=== PATIENT | female | born 1955 | race Caucasian/White ===

== ENCOUNTER 2018-07-23 11:44 | Inpatient (IN) | payer MEDICAID, OTHER ==
[2018-07-23 12:40] LABS: VENOUS BLOOD GAS BASE EXCESS 1.7 mmol/L (0.0-2.0); VENOUS BLOOD GAS PO2 16 mm/Hg (30-55); VENOUS BLOOD PH 7.39 (7.32-7.43)
--- NOTE | 2018-07-23 12:46 | ED PDOC ---
Arrival/HPI - General Chief Complaint: Cough, Cold, Congestion Time Seen by Provider: 07/23/18 12:03 Historian: Patient - History of Present Illness Narrative History of Present Illness (Text): 07/23/18 12:03 Amanda Clinton is a 63 year old female, with a past medical history of double bypass CABG and pulmonary embolism who presents to the emergency department complaining of sudden flu-like symptoms since 5 days. Patient states flying to [place] 6 days ago with no symptoms. Patient notes intermittent chest pain and body aches. Patient also informs of nausea and decreased appetite. Patient took motrin for pain. Patient also states taking zithromax z-pack and tylenol. Patient informs taking tamiflu prescribed by daughter for 2 days and appreciated side effects. Patient notes developing a cough, shortness of breath, and inte rmittent dizziness. Patient states she was seen at an urgent care this morning for chest X-ray which shows bilateral pneumonia. Patient is unsure of sick contact. Patient informs taking coumadin for 6 months but has since discontinued use. Patient informs taking metropolol bid. Also takes baby aspirin. Patient denies abdominal pain, vomiting, diarrhea, bloody stool, dysuria, hematuria, or any other complaints. Time/Duration: < week (5 days) Symptom Onset: Sudden Activities at Onset: Light Context: Work Past Medical History - Provider Review Nursing Documentation Reviewed: Yes - Infectious Disease Hx of Infectious Diseases: None - Reproductive Menopause: Yes - Cardiac Hx Cardiac Disorders: Yes Other/Comment: bypass - Pulmonary Hx Respiratory Disorders: No Hx Pulmonary Embolism: Yes - Endocrine/Metabolic Hx Endocrine Disorders: No - Hematological/Oncological Hx Blood Disorders: No - Musculoskeletal/Rheumatological Hx Musculoskeletal Disorders: No - Genitourinary/Gynecological Hx Genitourinary Disorders: No - Psychiatric Hx Substance Use: No - Anesthesia Hx Anesthesia: No Family/Social History - Physician Review Nursing Documentation Reviewed: Yes Family/Social History: Unknown Family HX Smoking Status: Unknown If Ever Smoked Hx Alcohol Use: Yes Frequency of alcohol use: Socially Hx Substance Use: No Allergies/Home Meds Allergies/Adverse Reactions: Allergies No Known Allergies Allergy (Verified 07/23/18 12:02) Home Medications: Home Meds Medication Instructions Recorded Confirmed Aspirin [Ecotrin] 81 mg PO DAILY 07/23/18 07/23/18 Atorvastatin [Lipitor] 20 mg PO DAILY 07/23/18 07/23/18 Metoprolol Tartrate [Lopressor] 75 mg PO BID 07/23/18 07/23/18 Ranitidine HCl [Zantac 75] 150 mg PO DAILY 07/23/18 07/23/18 Review of Systems - Physician Review All systems were reviewed & negative as marked: Yes - Review of Systems Constitutional: Fevers, Other (body aches) Respiratory: SOB, Cough Cardiovascular: Chest Pain Gastrointestinal: Nausea, Appetite Changes (decreased appetite). absent: Abdominal Pain, Diarrhea, Vomiting, Hematochezia Genitourinary Female: absent: Dysuria, Hematuria Neurological: Dizziness Physical Exam Vital Signs Reviewed: Yes Vital Signs Temp Pulse Resp BP Pulse Ox 07/23/18 11:55 98.6 F 98 H 20 106/66 96 Temperature: Afebrile Blood Pressure: Normal Pulse: Regular Respiratory Rate: Normal Appearance: Positive for: Well-Appearing, Non-Toxic, Comfortable Pain Distress: None Mental Status: Positive for: Alert and Oriented X 3 - Systems Exam Head: Present: Atraumatic, Normocephalic Pupils: Present: PERRL Extroacular Muscles: Present: EOMI Conjunctiva: Present: Normal Mouth: Present: Moist Mucous Membranes Neck: Present: Normal Range of Motion Respiratory/Chest: Present: Clear to Auscultation, Good Air Exchange. No: Respiratory Distress, Accessory Muscle Use, Wheezes, Rales, Rhonchi Cardiovascular: Present: Regular Rate and Rhythm, Normal S1, S2. No: Murmurs, Rub, Gallop Abdomen: Present: Normal Bowel Sounds. No: Tenderness, Distention, Peritoneal Signs, Rebound, Guarding Back: Present: Normal Inspection Upper Extremity: Present: Normal Inspection, NORMAL PULSES. No: Cyanosis, Edema Lower Extremity: Present: Normal Inspection, NORMAL PULSES. No: Edema Neurological: Present: GCS=15, CN II-XII Intact, Speech Normal, Motor Func Grossly Intact Skin: Present: Warm, Dry, Normal Color. No: Rashes Psychiatric: Present: Alert, Oriented x 3, Normal Insight, Normal Concentration Medical Decision Making ED Course and Treatment: 07/23/18 12:03 Impression: Patient is a 63 year old female, with a past medical history of double bypass CABG and pulmonary embolism, who presents to the emergency department complaining of flu-like symptoms since 5 days. Plan: -- VBG -- CT Angio Chest -- Labs -- Influenza A/B -- Levaquin -- Reassess and disposition Prior Visits: Notes and results from previous visits were reviewed. Progress Notes: 07/23/18 13:44 Reviewed EKG, shows: NSR at 86 BPM. Normal Intervals. No ST elevations. 07/23/18 14:23 CT Angio Chest shows: IMPRESSION: There is dense consolidation of the right upper lobe. Air bronchograms are seen . There is no evidence of endobronchial obstruction. Findings are consistent with a lobar pneumonia. There is no evidence of pulmonary embolus 07/23/18 14:[address] Mcpherson; accepts patient to his service and agrees with ordering Levaquin. 07/23/18 15:52 Patient's niece (Dr. Hernandez, lockstitch front edge tape sewer) phoned. She states the family requests consult per Dr. Dumont. Dr. Dumont requests patient admission to Dr. Amezquita's service 07/23/18 16:00 Dr. Mcpherson aware of change in attending. 07/23/18 16:10 Case d/w Dr. Amezquita who accepts pt to her service. - Lab Interpretations Lab Results: pO2 16 mm/Hg (30-55) L 07/23/18 12:30 VBG pH 7.39 (7.32-7.43) 07/23/18 12:30 VBG pCO2 45.0 (40-60) 07/23/18 12:30 VBG HCO3 27.2 mmol/l (21-28) 07/23/18 12:30 VBG Total CO2 28.6 mmol.L (22-28) H 07/23/18 12:30 VBG O2 Sat (Calc) 34.6 % (40-65) L 07/23/18 12:30 VBG Base Excess 1.7 mmol/L (0.0-2.0) 07/23/18 12:30 VBG Potassium 3.9 mmol/L (3.6-5.2) 07/23/18 12:30 Sodium 133.0 mmol/L (132-148) 07/23/18 12:30 Chloride 101.0 mmol/L (98-107) 07/23/18 12:30 Glucose 120 mg/dl (65-105) H 07/23/18 12:30 Lactate 1.9 mmol/L (0.7-2.1) 07/23/18 12:30 FiO2 21.0 % 07/23/18 12:30 Blood Gas Comments Released 07/23/18 12:30 Crit Value Called To Rn 07/23/18 12:30 Crit Value Called By E 07/23/18 12:30 Blood Gas Notified Time 1240 07/23/18 12:30 - RAD Interpretation Radiology Orders: 07/23/18 12:19 ANGIO CHEST PE PROTOCOL [CT] Stat - EKG Interpretation Interpreted by ED Physician: Yes Type: 12 lead EKG - Scribe Statement The provider has reviewed the documentation as recorded by the Scribe Mulugeta Hernandez All medical record entries made by the Scribe were at my direction and personally dictated by me. I have reviewed the chart and agree that the record accurately reflects my personal performance of the history, physical exam, medical decision making, and the department course for this patient. I have also personally directed, reviewed, and agree with the discharge instructions and disposition. Disposition/Present on Arrival - Present on Arrival Any Indicators Present on Arrival: No History of DVT/PE: No History of Uncontrolled Diabetes: No Urinary Catheter: No History of Decub. Ulcer: No History Surgical Site Infection Following: None - Disposition Have Diagnosis and Disposition been Completed?: Yes Diagnosis: Pneumonia, Failure of outpatient treatment Disposition: HOSPITALIZED Disposition Time: 14:45 Patient Plan: Admission Condition: STABLE
[2018-07-23 12:57] LABS: BASO # 0.01 K/mm3 (0.0-2.0); BASO % 0.1 % (0.0-3.0); EOS % 0.4 % (1.5-5.0); LYMPH # 1.1 (1.2-3.4); LYMPH % 11.3 % (22.0-35.0); MEAN CELL VOLUME 87.4 fl (80.0-105.0); MEAN CORPUSCULAR HEMOGLOBIN 29.7 pg (25.0-35.0); MONO # 0.6 (0.1-0.6); RBC 4.04 10^6/uL (3.5-6.1); RED CELL DISTRIBUTION WIDTH 13.8 % (11.5-14.5); WHITE BLOOD COUNT 9.7 10^3/uL (4.5-11.0)
[2018-07-23 13:06] LABS: INR 1.19; PARTIAL THROMBOPLASTIN TIME 31.7 Seconds (26.9-38.3); PROTHROMBIN TIME 13.5 SECONDS (9.4-12.5)
[2018-07-23 13:09] LABS: ALBUMIN 3.2 g/dL (3.0-4.8); ALT/SGPT 22 U/L (7-56); AST/SGOT 31 U/L (14-36); BLOOD UREA NITROGEN 20 mg/dL (7-21); CALCIUM 9.4 mg/dL (8.4-10.5); GFR NON-AFRICAN AMERICAN 56
[2018-07-23 13:21] LABS: B-TYPE NATRIURETIC PEPTIDE 2510 pg/mL (0-450); TROPONIN I < 0.01 ng/mL
[2018-07-23] MEDS ORDERED: Iohexol 350 MG/100 ML VIAL ONE (13:43)
--- NOTE | 2018-07-23 14:27 | CT ---
Date of service: 07/23/2018 PROCEDURE: CT Chest with contrast (Pulmonary Angiogram) HISTORY: sob/cp COMPARISON: None available. TECHNIQUE: Axial computed tomography images were obtained of the chest in the pulmonary arterial phase of enhancement. Coronal and sagittal reformatted images were created and reviewed. Intravenous contrast dose: 100 cc of Omni 350 Radiation dose: Total exam DLP = 214.13 mGy-cm. This CT exam was performed using one or more of the following dose reduction techniques: Automated exposure control, adjustment of the mA and/or kV according to patient size, and/or use of iterative reconstruction technique. FINDINGS: PULMONARY ARTERIES: Unremarkable. No pulmonary embolism. AORTA: No acute findings. No thoracic aortic aneurysm. No aortic atherosclerotic calcification or mural plaque present. LUNGS: There is dense consolidation of the right upper lobe. Air bronchograms are seen. There is no evidence of endobronchial obstruction. Findings are consistent with a lobar pneumonia. PLEURAL SPACES: Unremarkable. No effusion or pneumothorax. HEART: Unremarkable. No cardiomegaly. No significant pericardial effusion. LYMPH NODES: No lymphadenopathy. BONES, CHEST WALL: Unremarkable. No fracture or destructive lesion OTHER FINDINGS: Unremarkable. IMPRESSION: There is dense consolidation of the right upper lobe. Air bronchograms are seen. There is no evidence of endobronchial obstruction. Findings are consistent with a lobar pneumonia. There is no evidence of pulmonary embolus
[2018-07-23] MEDS ORDERED: levoFLOXacin 750 mg in D5W 150 ML BAG IVPB STA (14:54)
[2018-07-23] MEDS ORDERED: levoFLOXacin 750 mg in D5W 750 MG/150 ML BAG IVPB STA (14:59)
[2018-07-23] MEDS ORDERED: Pneumococcal 23-Valent Vaccine IM ONE (18:19)
--- NOTE | 2018-07-23 21:49 | CARD ---
APPROVED REPORT Date of service: 07/23/2018 EKG Measurement Heart [id number] <Conclusion> Poor data quality, interpretation may be adversely affected Normal sinus rhythm Minor NDSTT abnormalities [facility] ECG
--- NOTE | 2018-07-24 02:53 | HP ---
DATE OF EXAM: 07/23/2018 CHIEF COMPLAINT: Cold, cough and congestion. HISTORY OF PRESENT ILLNESS: Ms. Amanda Clinton is a 63-year-old female with past medical history of double bypass CABG and pulmonary embolism who came to the emergency department complaining of sudden flu-like symptoms since 5 days. The patient states flying to [place] 6 days ago with no symptoms. The patient had noticed intermittent chest pain, body aches. The patient also is complaining of nauseous and decreased appetite. She takes Motrin for pain and the patient also states that the patient went to urgent care center, they gave her Z-Pito and Tylenol, took Tamiflu two days ago. Has cough, shortness of breath, intermittent dizziness. Chest x-ray was done in urgent care, shows bilateral pneumonia. The patient does not remember of sick contact. The patient is on Coumadin from 6 months and has discontinued taking blood pressure medication. No fever. No chills. PAST MEDICAL HISTORY: As above. History of bypass, pulmonary embolism. FAMILY HISTORY: Father and mother, noncontributory. HABITS: Denies smoke. No drugs. No ethanol. ALLERGIES: THE PATIENT IS NOT ALLERGIC WITH ANY MEDICATIONS. HOME MEDICATIONS: Ecotrin, Lipitor, Lopressor, and Zantac. REVIEW OF SYSTEMS: The patient was seen and examined at the bedside, looking comfortable. No fever. No chills. Son was standing on the bedside also, he gave me also history. No dysuria. No hematuria. No hematochezia. PHYSICAL EXAMINATION VITAL SIGNS: Temperature 98.6, pulse 98, respiratory rate 20, blood pressure 106/66, pulse oximetry 96%. HEENT: Head; normocephalic and atraumatic. Eyes; PERRLA. Extraocular muscles intact. Conjunctiva clear. Nose patent. NECK: Supple. No carotid bruits, JVD, or thyromegaly. CHEST: Bilaterally symmetrical. HEART: S1 and S2 positive. LUNGS: Clear to auscultation. ABDOMEN: Soft. Bowel sounds positive. No organomegaly. EXTREMITIES: No edema. No cyanosis. NEUROLOGICAL: The patient is awake, alert. Moving all four extremities. No focal deficits. LABORATORY DATA: White blood cells 6.7, hemoglobin 12, hematocrit 35.3, platelets 254. Sodium 137, potassium 4, BUN 20, creatinine 1, glucose 117, alkaline phosphate 140, BNP 2510. ASSESSMENT AND PLAN: Ms. Amanda Clinton is a 63-year-old lady with hyperglycemia, rule out congestive heart failure, Influenza type A and B is negative. History of upper respiratory tract infection, cold. Got Z-Pito from urgent care, has partially treated. New dense consolidation of the right upper lobe, air bronchogram are seen. There is no evidence of endobronchial obstruction, findings are consistent with lobar pneumonia. The patient has a history of double bypass coronary artery bypass graft, pulmonary embolism was on Coumadin. Discussion done with the patient and the patient's son, an emergency room physician met with Dr. Dumont, [facility], who will be on the case. Infectious Disease consult written for Dr. Garza. Dr. Dumont ordered Legionella antigen urine, mycoplasma pneumoniae, Streptococcus pneumoniae, gave antibiotics. Gastrointestinal and deep venous thrombosis prophylaxis. Repeat labs. We will follow up. Eve Amezquita MD
[2018-07-24 06:46] LABS: HEMOGLOBIN 11.4 g/dL (12.0-16.0); MEAN CELL VOLUME 86.1 fl (80.0-105.0); MEAN CORPUSCULAR HEMOGLOBIN 28.9 pg (25.0-35.0); MEAN CORPUSCULAR HGB CONC 33.5 g/dl (31.0-37.0); MEAN PLATELET VOLUME 9.6 fl (7.0-11.0); RBC 3.95 10^6/uL (3.5-6.1); RED CELL DISTRIBUTION WIDTH 13.8 % (11.5-14.5); WHITE BLOOD COUNT 8.1 10^3/uL (4.5-11.0)
[2018-07-24 07:12] LABS: LDL CHOLESTEROL 51 mg/dL (0-129)
[2018-07-24 07:15] LABS: BLOOD UREA NITROGEN 12 mg/dL (7-21); CALCIUM 8.9 mg/dL (8.4-10.5); GFR NON-AFRICAN AMERICAN > 60; HDL CHOLESTEROL 13 mg/dL (29-60)
[2018-07-24 07:49] LABS: IRON 21 ug/dL (45-180)
[2018-07-24 07:58] LABS: % IRON SATURATION 10 % (20-55); TOTAL IRON BINDING CAPACITY 206 ug/dL (265-497)
[2018-07-24] MEDS ORDERED: cefTRIAXone 1 gm 1 GM/100 ML BAG IVPB SCH (10:00)
--- NOTE | 2018-07-24 16:21 | CON ---
DATE: 07/24/2018 PULMONARY CONSULTATION NOTE REFERRING PHYSICIAN: Eve Amezquita MD REASON FOR CONSULT: Shortness of breath, cough and congestion. HISTORY OF PRESENT ILLNESS: This is a 63-year-old female with past medical history significant for double bypass, CABG and pulmonary embolism who came to the emergency room complaining of sudden flu-like symptoms for 5 days. The patient reports that she was on a work trip to [place] 6 days ago where she had no symptoms, then she noticed she was having intermittent chest pain and body aches, nausea and decreased appetite. She reports taking Motrin for pain and also reports that she went to the urgent care center where she got Z-Pito and Tylenol. The patient also reports taking Tamiflu, noticed that her symptoms were not getting any better. Had a chest x-ray done in urgent care which showed bilateral pneumonia. Denies any sick contacts. The patient reports being on Coumadin for 6 months which has now been discontinued. PAST MEDICAL HISTORY: As per history of present illness. FAMILY HISTORY: No significant cardiopulmonary disease reported. SOCIAL HISTORY: Nonsmoker. No EtOH abuse. No illicit drug use. ALLERGIES: NO KNOWN ALLERGIES. MEDICATIONS: Reviewed. Aspirin 81 mg daily, Lipitor 20 mg at dinner, Zithromax 500 mg daily, Rocephin 1 g daily, Pepcid 40 mg at bedtime and metoprolol tartrate 75 mg twice a day. REVIEW OF SYSTEMS: No headache, rhinitis, cough, shortness of breath, chest pain, abdominal pain, nausea, vomiting, diarrhea, leg pain and leg swelling reported at this time. PHYSICAL EXAMINATION GENERAL: No acute distress. VITAL SIGNS: Blood pressure 114/69, pulse 79, temperature 99, and oxygen saturation 97%. HEENT: Moist mucous membranes. Mallampati score of 4. NECK: Supple. No JVD. RESPIRATORY: Decreased breath sounds on the right. CARDIOVASCULAR: S1 and S2. ABDOMEN: Soft and nontender. No distention. No organomegaly. EXTREMITIES: No bilateral lower extremity edema. NEUROLOGICAL: Awake, alert and verbal. Following commands. LABORATORY DATA: Reviewed. WBC 8.1, RBC 3.95, hemoglobin 11.4, hematocrit 34, and platelets 257. PT 13.5, INR 1.19, and APTT 31.7. PO2 of 16. Venous pH 7.39, venous PCO2 of 45, venous HCO3 of 47.2 on FIO2 of 21. Sodium 136, potassium 3.9, chloride 100, carbon dioxide 27, anion gap 13, BUN 12, creatinine 0.9, GFR greater than 60, random glucose 32, hemoglobin A1C 5.7, calcium 8.9, iron 21, TIBC 206 and percent saturation 10, triglycerides 113, cholesterol 89, LDL cholesterol 51, HDL cholesterol 13, vitamin B12 greater than 1000, folate 15, procalcitonin 1.04, TSH 2.38, total bilirubin 0.5, AST 31, ALT 22, alkaline phosphatase 140, lactate dehydrogenase 406, total creatine kinase 21, troponin less than 0.01, proBNP 2510, total protein 6.3, albumin 3.2, globulin 3.1, and albumin-globulin ratio 1.0. Influenza type A and B negative. Urine legionella antigen negative. Mycoplasma pneumonia IgM negative. Group A and B Strep antigen negative. EKG normal sinus rhythm. Chest CT shows dense consolidation of the right upper lobe air bronchogram seen, there is no evidence of endobronchial obstruction. No evidence of pulmonary embolism, findings consistent with lobar pneumonia. IMPRESSION AND PLAN: Pneumonia, history of pulmonary embolism, history of double bypass, coronary artery bypass graft. The patient reports that she does have a history of gastroesophageal reflux disorder and does snore presently with pneumonia. Procalcitonin positive. The patient partially treated as outpatient. Could possibly be a component of aspiration pneumonia as well, the patient does have community acquired pneumonia. We will discontinue Rocephin and Zithromax and place the patient on Zosyn 4.5 g every 8 hours. The patient as outpatient was treated with Zithromax. We will place the patient on Lovenox for deep venous thrombosis prophylaxis. Continue gastric prophylaxis. We will place the patient on inhaled bronchodilators. We do suspect sleep apnea on this patient. Recommend the patient have sleep study as outpatient. The patient will also need followup CT scan as outpatient to assure stability/resolution of infiltrates. This patient was seen and examined with Dr. Dumont. Discussed assessment and plan as described above. This patient was seen and examined with Sebastian Goel, nurse practitioner. Discussed assessment and plan as described above. Thank you for this consult and we will follow with you. Sebastian Goel APN Paula Dumont MD [facility] # [id number]
--- NOTE | 2018-07-24 20:14 | CON ---
DATE: 07/24/2018 The patient is seen earlier today in room 364, bed 1. CHIEF COMPLAINT: Weakness and shortness of breath times several days. HISTORY OF PRESENT ILLNESS: This is a 63-year-old female with a history of coronary artery disease, coronary artery bypass graft, hyperlipidemia, pulmonary emboli; was admitted with flu-like symptoms, was given Tamiflu as outpatient and she continues to have nausea, weakness, shortness of breath, and cough, pulmonary symptoms. She was also given a Z-Pito with the Tamiflu and Tylenol, which she actually took. She has low-grade fevers. Cough is not productive. No chest pain. No abdominal pain, diarrhea or constipation, or bright red blood per rectum. No melena. PAST MEDICAL HISTORY: Significant for coronary artery disease, pulmonary emboli, and hyperlipidemia. PAST SURGICAL HISTORY: Significant for coronary artery bypass graft and left shoulder surgery. ALLERGIES: THE PATIENT HAS NO KNOWN ALLERGIES. SOCIAL HISTORY: Last visit outside of the [place] was to [facility] two and a half years ago. She also was in [place]. She lives with her , her children, and grandchildren. No pets. No exposure to tuberculosis at this time. PHYSICAL EXAMINATION: VITAL SIGNS: Temperature is 101.3, heart rate of 100, respiratory rate of 26. HEENT: Examination of HEENT is unremarkable. NECK: Supple. LUNGS: Have decreased breath sounds. HEART: Normal S1, S2. ABDOMEN: Soft, nontender. No organomegaly. No rebound or guarding. No masses. LABORATORY EXAMINATION: Reveals a white count of 9.7, hemoglobin of 12, platelets of 254. Chemistries reveals a BUN of 20, creatinine of 1. Alk phos is 140. BNP is 2510. The patient's influenza is negative and Strep antigen is negative. Microbiology is pending. The patient had a CAT scan of chest, which showed infiltrate, right upper lobe air bronchograms are seen, lobar pneumonia, no evidence of PE. Dr. Amezquita's history and physical examination is reviewed. ASSESSMENT AND PLAN: This is a 63-year-old female with pulmonary emboli, coronary artery disease, hyperlipidemia presenting with sepsis with community-acquired pneumonia. We will treat the patient with Rocephin and Zithromax, and she is not sure if she finished the Zithromax or not, only a few doses. We will check on a procalcitonin urine for Legionella antigen, sputum culture, blood cultures, MRSA screen and we will make further recommendations. Mat Garza MD
[2018-07-24] MEDS: Budesonide 0.5 mg/2 ml Inhal Susp UD IH SCH (20:53)
[2018-07-24] MEDS: Arformoterol 15 mcg/2 ml Inh Sol IH SCH (20:53)
--- NOTE | 2018-07-24 21:16 | PN ---
DATE: 07/24/2018 This case was discussed with Dr. Amezquita. She is in agreement with this treatment plan. SUBJECTIVE: This is a 63-year-old female came into the emergency room after traveling abroad, fatigue, body aches, shortness of breath, intermittent chest pain, and chest congestion. CT scan reviewed, showed right lobar pneumonia consolidation. The patient has a past medical history of cardiac double bypass surgery, CABG surgery, and COPD. She went to Urgent Care and started treatment with Z-Pito for pneumonia, but still was having symptoms. I saw the patient today. She is in bed. She was looking fatigue but was alert. The patient reports of nausea. She denies chest pain. Have some shortness of breath intermittently with exertion. Denies hematuria, hematochezia, had fever and chills yesterday, however at the moment has none. PHYSICAL EXAMINATION: GENERAL: The patient appears chronically ill and fatigued. HEENT: Normocephalic and atraumatic. PERRLA. Mucous membranes moist. NECK: Supple. Normal inspection. RESPIRATORY: Decreased breath sounds slightly wheezing cleared with cough. CARDIOVASCULAR: S1 and S2. No murmur. No gallop. No JVD. ABDOMEN: Soft and nontender. No guarding. No tenderness. SKIN: Intact. EXTREMITIES: No edema. No cyanosis. NEUROLOGIC: The patient is alert and oriented x3. Cranial nerves II through XII intact. No cognitive deficits. MEDICATIONS: Brovana every 12 hours, aspirin, Lipitor daily, Pulmicort, Lovenox, Pepcid, Lopressor, and the patient is on Zosyn IV piggyback every 8 hours. LABORATORY DATA: White blood cell 8.1, hemoglobin 11.4, hematocrit 34, and neutrophils elevated at 82.2. INR is 1.19 and PT 13.5. Sodium 136, potassium 3.9, BUN is 12, creatinine 0.9, and GFR was 60. Hemoglobin A1c today 5.7. BNP is 2510. Blood cultures are negative after 24 hours. ASSESSMENT AND PLAN: This is a 63-year-old female who came in with right lobar pneumonia, congestive heart failure, and chronic anemia. The patient continues on IV Zosyn every 8 hours, Lopressor, Pulmicort, Lipitor, we will maintain deep venous thrombosis prophylaxis and gastric prophylaxis. Monitor laboratories. Monitor second blood culture. Infectious Disease is on the case and Pulmonary is on the case. We will follow up. ALL ABOVE NOTED , AGREED ALL ABOVE NOTED WILL F/U Kyaw Velazquez APN Eve Amezquita MD [facility]
[2018-07-24] MEDS ORDERED: guaiFENesin DM 200 mg-20 mg/10 ml UD PO STA (21:29)
[2018-07-24] MEDS: Piperacill/Tazo 4.5gm in NS 4.5 GM/100 ML BAG IVPB SCH (21:58)
[2018-07-25] MEDS: Piperacill/Tazo 4.5gm in NS 4.5 GM/100 ML BAG IVPB SCH ×2 (06:25→21:35)
[2018-07-25 08:01] VITALS: RESP 20
[2018-07-25] MEDS: Budesonide 0.5 mg/2 ml Inhal Susp UD IH SCH ×2 (08:01→20:37)
[2018-07-25] MEDS: Arformoterol 15 mcg/2 ml Inh Sol IH SCH ×2 (08:01→20:38)
[2018-07-25] MEDS: Enoxaparin 40 mg Syringe SC SCH (09:47)
[2018-07-25] MEDS ORDERED: Albuterol-Ipratrop 3 mg / 0.5 (3 ml) UD IH PRN (11:08)
--- NOTE | 2018-07-25 12:05 | PN ---
DATE: 07/25/2018 REFERRING PHYSICIAN: Dr. Eve Amezquita. SUBJECTIVE: The patient is seen sitting up in bed. No acute distress. Reports that she does have some coughing and some shortness of breath at times. Reports feeling tired. No headache, rhinitis, chest pain, abdominal pain, nausea, vomiting, diarrhea, leg pain or leg swelling reported. OBJECTIVE: VITAL SIGNS: Blood pressure 127/79, pulse 78, temperature 99.5, oxygen saturation 96%. GENERAL: No acute distress. HEENT: Moist mucous membranes. Mallampati score of 4. NECK: Supple. No JVD. RESPIRATORY: Decreased breath sounds on the right. CARDIOVASCULAR: S1 and S2. ABDOMEN: Soft and nontender. No distention. No organomegaly. EXTREMITIES: No bilateral lower extremity edema. NEUROLOGIC: Awake, alert and verbal. Following commands. MEDICATIONS: Reviewed. Tylenol 650 mg every 6 hours p.r.n. fever greater than 100.4, Brovana 15 mcg every 12 hours, aspirin 81 mg daily, Lipitor 20 mg at dinner, Pulmicort 0.5 mg inhalation every 12 hours, Lovenox 40 mg subcutaneous daily, Pepcid 40 mg at bedtime, metoprolol tartarate 75 mg twice a day. LABORATORY DATA: Reviewed. Blood cultures preliminary no growth after 24 hours. MRSA culture in the nares preliminary MRSA not detected. Group A strep throat culture final shows no beta strep group A isolated. IMPRESSION AND PLAN: Pneumonia, history of pulmonary embolism, history of double bypass, coronary artery disease, hypertension, gastroesophageal reflux disease. Case discussed with Infectious Disease. We will continue the patient on Zosyn 4.5 g every 8 hours. Continue inhaled bronchodilators. Gastric prophylaxis. Deep venous thrombosis prophylaxis. Suspect that this could also be a component of aspiration pneumonia. We do suspect sleep apnea in this patient and recommend the patient have sleep study as outpatient. The patient will also need followup CAT scan as outpatient to assess stability of resolution of infiltrates. The patient was seen and examined with Dr. Dumont. Discussed assessment and plan as described above. The patient was seen and examined by Sebastian Goel, nurse practitioner. Discussed assessment and plan as described above. Thank you for this consult. We will follow with you. Sebastian Goel APN Paula Dumont MD [facility] # [id number]
[2018-07-25] MEDS ORDERED: Piperacill/Tazo 4.5gm in NS 4.5 GM/100 ML BAG IVPB SCH (14:00)
--- NOTE | 2018-07-25 14:59 | PN ---
DATE: 07/25/2018 SUBJECTIVE: The patient was seen and examined at bedside on 07/25/2018. The patient was seen on 07/25/2018 and looking comfortable. Has fever and complaining about chest pain on the right side going in the back, coughing. No nausea, vomiting, or diarrhea, no constipation. No swelling of the leg. No hematuria. No hematochezia. Feeling tired. PHYSICAL EXAMINATION: VITAL SIGNS: Blood pressure 120/79, pulse 78, temperature 99.8. and oxygen saturation 96%. HEENT: Head is normocephalic and atraumatic. Eyes, PERRLA. Extraocular muscles intact. Conjunctiva clear. Nose patent. NECK: Supple. No carotid bruit. No JVD or thyromegaly. CHEST: Bilaterally symmetrical. HEART: S1 and S2, positive. LUNGS: Clear to auscultation. ABDOMEN: Soft. Bowel sounds present. No organomegaly. EXTREMITIES: No edema. No cyanosis. NEUROLOGIC: The patient is awake and alert. Moving all four extremities. No focal deficit. MEDICATIONS: Tylenol, Lipitor, Pulmicort, Lovenox and Pepcid. LABORATORY DATA: We do not have recent lab today, but I reviewed old labs. No growth of blood culture in 24 hours. MRSA culture in the nares preliminary, MRSA not detected. Group A strep throat cultures final shows no beta strep group A isolated. ASSESSMENT AND PLAN: Ms. Oz Patel is 63-year-old female with history of pneumonia, history of pulmonary emboli, double bypass heart surgery, coronary artery disease, hypertension and gastroesophageal reflux disease now having the fever off and on, sometime high grade, sometime low-grade. Infectious Disease is on the case. Up until now, blood cultures are negative. We will continue the patient on Zosyn. Continue bronchodilators, Tylenol for pain and gastrointestinal and deep venous thrombosis prophylaxis. Discussion done with nurse practitioner of Sebastian Meyers and patient and patient's nursing staff. We will follow up. Eve Amezquita MD
[2018-07-26] MEDS: Piperacill/Tazo 4.5gm in NS 4.5 GM/100 ML BAG IVPB SCH (05:08)
[2018-07-26 06:38] LABS: HEMOGLOBIN 11.2 g/dL (12.0-16.0); MEAN CELL VOLUME 86.8 fl (80.0-105.0); MEAN CORPUSCULAR HEMOGLOBIN 29.1 pg (25.0-35.0); MEAN CORPUSCULAR HGB CONC 33.5 g/dl (31.0-37.0); MEAN PLATELET VOLUME 9.1 fl (7.0-11.0); RBC 3.85 10^6/uL (3.5-6.1); RED CELL DISTRIBUTION WIDTH 14.1 % (11.5-14.5); WHITE BLOOD COUNT 7.1 10^3/uL (4.5-11.0)
[2018-07-26 07:18] LABS: BLOOD UREA NITROGEN 11 mg/dL (7-21); CALCIUM 8.7 mg/dL (8.4-10.5); GFR NON-AFRICAN AMERICAN > 60
[2018-07-26] MEDS: Arformoterol 15 mcg/2 ml Inh Sol IH SCH (07:45)
[2018-07-26] MEDS: Budesonide 0.5 mg/2 ml Inhal Susp UD IH SCH (07:45)
[2018-07-26 07:53] VITALS: BP 111/68; PULSE 68; TEMP 97.8; O2SAT 97
--- NOTE | 2018-07-26 08:10 | PN ---
DATE: 07/25/2018 SUBJECTIVE: The patient is seen in bed, in no acute distress, nontoxic, and was seen earlier today. The patient is doing better. OBJECTIVE: VITAL SIGNS: Temperature is 98, T-max yesterday was 100.3, blood pressure is 120/60, and respiratory rate 18. HEENT: Unremarkable. NECK: Supple. LUNGS: Have decreased breath sounds. HEART: Normal S1 and S2. ABDOMEN: Soft. LABORATORY EXAMINATION: Reveals a white count of 8.1 and hemoglobin of 11. Chemistries are noted. The patient's procalcitonin is 1.04. Serology is noted. HIV is negative. Urine for Legionella is negative. Mycoplasma is negative. Group B Strep is negative. Influenza is negative. Microbiology reveals the blood cultures are negative. MRSA is not detected and throat cultures are negative. ASSESSMENT AND PLAN: This is a 63-year-old female who originally from [place] with coronary artery disease, coronary artery bypass graft, hyperlipidemia, pulmonary emboli, and admitted with flu-like symptoms and getting Tamiflu and Zithromax as outpatient and now has sepsis with community-acquired pneumonia on Zosyn because the patient received antibiotics as an outpatient with an elevated procalcitonin. We will continue the Zosyn and we will follow closely with you. Mat Garza MD
[2018-07-26] MEDS: Enoxaparin 40 mg Syringe SC SCH (10:41)
--- NOTE | 2018-07-26 11:24 | PN ---
DATE: 07/26/2018 PULMONARY PROGRESS NOTE REFERRING PHYSICIAN: Dr. Eve Amezquita. SUBJECTIVE: The patient is seen sitting up in bed. No acute distress. No overnight events reported. The patient reports feeling better this morning. Cough and shortness of breath have improved. States that last night she did feel some shortness of breath and had to use the oxygen, but this morning, she is feeling much better. No headache, rhinitis, chest pain, abdominal pain, nausea, vomiting, diarrhea, leg pain or leg swelling reported. OBJECTIVE: VITAL SIGNS: Blood pressure 111/68, pulse 68, temperature 97.8 and oxygen saturation 97%. GENERAL: No acute distress. HEENT: Moist mucous membranes. Mallampati score of 4. NECK: Supple. No JVD. RESPIRATORY: Decreased breath sounds. CARDIOVASCULAR: S1 and S2. ABDOMEN: Soft and nontender. No distention. No organomegaly. EXTREMITIES: No bilateral lower extremity edema. NEUROLOGIC: Awake, alert and verbal. Following commands. MEDICATIONS: Reviewed. Tylenol 650 every 6 hours p.r.n. fever greater than 100.4, DuoNeb 3 mL inhalation every 6 hours p.r.n., Brovana 15 mcg inhalation every 6 hours, aspirin 81 mg p.o. daily, Lipitor 20 mg at dinner, Pulmicort 0.5 mg inhalation every 6 hours, Lovenox 40 mg subcutaneous daily, Pepcid 40 mg at bedtime, Lopressor 75 mg twice a day and Zosyn 4.5 g every 8 hours. LABORATORY DATA: Reviewed. WBC 7.1, RBC 3.85, hemoglobin 11.2, hematocrit 33.4 and platelets 335. Sodium 137, potassium 4.1, chloride 105, carbon dioxide 28, anion gap 8, BUN of 11, creatinine 0.8, GFR is greater than 60, random glucose 91 and calcium 8.7. HIV nonreactive. Blood cultures preliminary no growth after 48 hours. IMPRESSION AND PLAN: Pneumonia, history of pulmonary embolism, history of double bypass, coronary artery disease, hypertension and gastroesophageal reflux disease. Continue antibiotics as per Infectious Disease. Continue inhaled bronchodilators. Gastric prophylaxis. Deep venous thrombosis prophylaxis. We do believed that this pneumonia may be some component of aspiration pneumonia as the patient does have gastroesophageal reflux disease and we do suspect sleep apnea syndrome in this patient. Recommend this patient have sleep study as outpatient. The patient will also need followup CAT scan as outpatient to assure stability and resolution of infiltrates. Out of bed to chair. After this dictation patient IV antibiotics were changed to oral antibiotics by infectious disease. Patient cleared for discharge by infectious disease and primary. Pulmonary stand point patient is stable for discharge today. Will need follow up outpatient for sleep study, full pulmonary function test, and follow up CAT scan of chest. Discussed with nursing staff. The patient was seen and examined with Dr. Dumont. Discussed assessment and plan as described above. The patient was seen and examined by Sebastian Goel, nurse practitioner. Discussed assessment and plan as described above. Thank you for this consult and we will follow with you. Sebastian Goel APN Paula Dumont MD [facility]
[2018-07-26] MEDS ORDERED: Amoxicillin-Clav 875-125 mg Tab PO SCH (11:30)
--- NOTE | 2018-07-26 14:38 | PN ---
DATE: 07/26/2018 SUBJECTIVE: The patient is in bed, in no acute distress, nontoxic. She is doing much better. She states her fever is improved. PHYSICAL EXAMINATION: VITAL SIGNS: Temperature is 97, blood pressure is 111/60, respiratory rate 20. HEENT: Unremarkable. NECK: Supple. LUNGS: Have decreased breath sounds. HEART: Normal S1, S2. ABDOMEN: Soft, nontender. LABORATORY DATA: Laboratory examination reveals a white count is noted to be 7.1 and the chemistries are noted. BUN and creatinine is normal. The patient did have an elevated procalcitonin of 1.04 and serology is negative and microbiology reveals MRSA screen is negative and throat culture is negative for no growth. Blood cultures are negative. ASSESSMENT AND PLAN: This is a 63-year-old female who was treated with Z-Pito as outpatient with a history of coronary artery disease, hyperlipidemia, pulmonary emboli, admitted with flu-like symptoms and sepsis with community-acquired pneumonia, failed Z-Pito as outpatient and with elevated procalcitonin will complete with p.o. doxycycline and p.o. Augmentin. She was explained that she should have followup with Pulmonary and repeat imaging to resolution of the imaging is important. If the imaging does not resolve within the next few weeks, then she will need a bronchoscopy and further workup as per Dr. Dumont. From infectious disease point of view, Augmentin and doxy for next 5 to 7 days. Mat Garza MD
--- NOTE | 2018-07-26 16:16 | PN ---
DATE: 07/26/2018 SUBJECTIVE: This is a 63-year-old female came in with shortness of breath, fatigue, malaise, was diagnosed with pneumonia. [facility], was started on Z-Pito. Even after a couple of days, the patient was still having symptoms, came to the emergency room. Since being inpatient, the patient was received IV antibiotics, is currently on IV Zosyn every 8 hours. Negative blood cultures. The patient has a past medical history of pneumonia, CHF, and CABG. So, the patient today, she in room with head of bed elevated, also had 2 L nasal cannula. The patient was stating she felt better, only using oxygen intermittently. She denies shortness of breath, chest pain, malaise, still reporting a little bit of fatigue. She denies hematuria, hematochezia, abdominal pain. PHYSICAL EXAMINATION: GENERAL: The patient appears in no acute distress. VITAL SIGNS: Temperature 97.8, pulse rate 68, blood pressure 111/68, respiratory rate 20, O2 sat 97% with O2 at 2 L intermittently. HEENT: Normocephalic and atraumatic. PERRLA. Mucous membranes moist. RESPIRATORY: Clear to auscultation. No wheeze, no crackle, and no rhonchi. CARDIOVASCULAR: S1 and S2. No murmur. No JVD. ABDOMEN: Soft. Positive bowel sounds. No organomegaly. SKIN: Intact. No cyanosis. No edema. NEUROLOGIC: The patient is alert and oriented x3. No cognitive deficits. MEDICATIONS: Tylenol p.r.n., DuoNeb for shortness of breath, the patient is on Augmentin 875 which was started today, Brovana, Ecotrin, Lipitor, Pulmicort, doxycycline. The patient continues on Lovenox, Pepcid, and Lopressor. LABORATORY DATA: White blood cell 7.1, hemoglobin 11.2, hematocrit 33.4, platelet count 335. INR 1.19 and PT 13.5. The patient was negative for influenza A and B. Negative for Strep. ASSESSMENT AND PLAN: This is a 63-year-old female who came in with shortness of breath, pneumonia, hypertension, cardiovascular disease without stenting, gastric reflux disease, hypocholesterolemia. Pulmonology and ID is on the case, The patient was on intravenous Zosyn, switched to PO Augmentin 875/125, doxycycline. The patient continues on famotidine, Lopressor t.i.d., Brovana, Lipitor, aspirin. The patient has been afebrile for 24 hours. Will cont. present treatment ALL ABOVE NOTED , EDUCATION DONE , ALL LAB , MEDS AND CONSULTANTS NOTED AGREED WITH VICE PRESIDENT OF NURSING NOTES , CONT. PRESENT TREATMENT , WILL F/U Kyaw Velazquez APN Eve Amezquita MD [facility]
== END 2018-07-26 17:28 | disposition home or self-care (01) | DRG 194 ==
LOC: ED 11:44 → ERH 14:52 → 3RNO 17:33
PROVIDERS: ADMIT Internal Medicine; ATTEND Internal Medicine
DX: J18.1 Lobar pneumonia, unspecified organism (principal); J44.0 Chronic obstructive pulmonary disease with (acute) lower respiratory infection; I11.0 Hypertensive heart disease with heart failure; I50.9 Heart failure, unspecified; I25.10 Atherosclerotic heart disease of native coronary artery without angina pectoris; E78.5 Hyperlipidemia, unspecified; E78.00 Pure hypercholesterolemia, unspecified; K21.9 Gastro-esophageal reflux disease without esophagitis; R73.9 Hyperglycemia, unspecified; D64.9 Anemia, unspecified; Z95.1 Presence of aortocoronary bypass graft; Z86.711 Personal history of pulmonary embolism; Z79.01 Long term (current) use of anticoagulants; Z79.82 Long term (current) use of aspirin

== ENCOUNTER 2018-07-30 11:35 | Emergency (ER) | payer OTHER ==
[2018-07-30 11:41] VITALS: TEMP 97.8; BMI 21.6
--- NOTE | 2018-07-30 12:10 | ED PDOC ---
Arrival/HPI - General Historian: Patient - History of Present Illness Narrative History of Present Illness (Text): 07/30/18 12:11 Patient is a 63 yo female with history of CABG, CHF, and PE who presents with shortness of breath. Patient was just hospitalized 07/23-07/26/18 for RUL p reyia. Patient states that she felt "okay" upon discharge but over the last few days, she has felt more short of breath with fevers and chills. She reports Tmax 100.5. She also complains of R-sided chest and back pain, which she had during her hospitalization. Shed denies cough but reports increased R-sided pain with cough and deep inspiration. She denies palpitations and wheezing. She has been taking Augmentin and Doxycycline as prescribed. She states she has an appointment with foundry manager, Dr. Dumont, tomorrow. Time/Duration: > week Symptom Onset: Gradual Symptom Course: Worsening <Corinne Ray - Last Filed: 07/30/18 13:42> <Donald Rizzo - Last Filed: 07/30/18 15:29> - General Chief Complaint: Shortness Of Breath Time Seen by Provider: 07/30/18 12:10 Past Medical History - Infectious Disease Hx of Infectious Diseases: None - Tetanus Immunization Tetanus Immunization: Unknown - Cardiac Hx Cardiac Disorders: Yes Other/Comment: bypass - Pulmonary Hx Respiratory Disorders: Yes Hx Pneumonia: Yes Hx Pulmonary Embolism: Yes - Neurological Hx Neurological Disorder: No - HEENT Hx HEENT Disorder: No - Renal Hx Renal Disorder: No - Endocrine/Metabolic Hx Endocrine Disorders: No - Hematological/Oncological Hx Blood Disorders: No - Integumentary Hx Dermatological Disorder: No - Musculoskeletal/Rheumatological Hx Musculoskeletal Disorders: No - Gastrointestinal Hx Gastrointestinal Disorders: No - Genitourinary/Gynecological Hx Genitourinary Disorders: No - Psychiatric Hx Psychophysiologic Disorder: No Hx Substance Use: No - Surgical History Hx Musculoskeletal Surgery: Yes (R ROTATOR CUFF SURGERY) - Anesthesia Hx Anesthesia: No <Corinne Ray - Last Filed: 07/30/18 13:42> Family/Social History Family/Social History: Unknown Family HX Smoking Status: Never Smoked Hx Alcohol Use: Yes Hx Substance Use: No <Corinne Ray - Last Filed: 07/30/18 13:42> Allergies/Home Meds <Corinne Ray - Last Filed: 07/30/18 13:42> <Donald Rizzo - Last Filed: 07/30/18 15:29> Allergies/Adverse Reactions: Allergies No Known Allergies Allergy (Verified 07/30/18 11:56) Home Medications: Home Meds Medication Instructions Recorded Confirmed Aspirin [Ecotrin] 81 mg PO DAILY 07/23/18 07/30/18 Atorvastatin [Lipitor] 20 mg PO DAILY 07/23/18 07/30/18 Metoprolol Tartrate [Lopressor] 75 mg PO BID 07/23/18 07/30/18 Ranitidine HCl [Zantac 75] 150 mg PO DAILY 07/23/18 07/30/18 Review of Systems - Review of Systems Constitutional: Fatigue, Fevers Respiratory: SOB. absent: Cough, Sputum, Wheezing Cardiovascular: Chest Pain. absent: Palpitations, Edema Gastrointestinal: absent: Abdominal Pain Musculoskeletal: Back Pain Skin: absent: Skin Lesions Neurological: absent: Headache, Focal Weakness Endocrine: absent: Diaphoresis Hemo/Lymphatic: absent: Adenopathy <Corinne Ray - Last Filed: 07/30/18 13:42> Physical Exam Vital Signs Temp Pulse Resp BP Pulse Ox 07/30/18 11:40 97.8 F 73 18 133/77 96 Temperature: Afebrile Blood Pressure: Normal Pulse: Regular Respiratory Rate: Normal Appearance: Positive for: Non-Toxic Pain Distress: None Mental Status: Positive for: Alert and Oriented X 3 - Systems Exam Head: Present: Atraumatic, Normocephalic Pupils: Present: PERRL Extroacular Muscles: Present: EOMI Mouth: Present: Moist Mucous Membranes Neck: No: Lymphadenopathy Respiratory/Chest: Present: Decreased Breath Sounds (R-sided). No: Respiratory Distress, Accessory Muscle Use, Wheezes Cardiovascular: Present: Regular Rate and Rhythm, Normal S1, S2 Abdomen: No: Tenderness, Distention Lower Extremity: Present: Normal Inspection. No: Edema Neurological: Present: GCS=15, CN II-XII Intact, Speech Normal Skin: Present: Warm, Dry, Normal Color Lymphatic: No: Cervical Adenopathy Psychiatric: Present: Alert, Oriented x 3, Normal Insight, Normal Concentration <Corinne Ray - Last Filed: 07/30/18 13:42> Vital Signs Temp Pulse Resp BP Pulse Ox 07/30/18 14:11 80 17 108/58 L 99 07/30/18 12:45 21 100 07/30/18 11:40 97.8 F 73 18 133/77 96 <Donald Rizzo - Last Filed: 07/30/18 15:29> Medical Decision Making Re-evaluation Time: 13:37 Reassessment Condition: Re-examined, Improved - Lab Interpretations I have reviewed the lab results: Yes Interpretation: No sign. chg./baseline - RAD Interpretation Radiology Orders: CXR- R-sided infiltrate consistent with pneumonia [employer]: ED Physician, Radiologist - EKG Interpretation EKG Interpretation (Text): 07/30/18 13:02 NSR Interpreted by ED Physician: Yes Type: 12 lead EKG - Medication Orders Current Medication Orders: 07/30/18 12:36 Solu-Medrol 125 mg IV Duoneb x1 07/30/18 13:38 Protonix 40 mg IV <Corinne Ray - Last Filed: 07/30/18 13:42> - Lab Interpretations Lab Results: Total Bilirubin 0.6 mg/dL (0.2-1.3) 07/30/18 13:00 AST 32 U/L (14-36) 07/30/18 13:00 ALT 41 U/L (7-56) 07/30/18 13:00 Alkaline Phosphatase 99 U/L (38-126) 07/30/18 13:00 Total Protein 6.8 g/dL (5.8-8.3) 07/30/18 13:00 Albumin 3.6 g/dL (3.0-4.8) 07/30/18 13:00 Globulin 3.1 gm/dL 07/30/18 13:00 Albumin/Globulin Ratio 1.2 (1.1-1.8) 07/30/18 13:00 - RAD Interpretation Radiology Orders: 07/30/18 12:24 CXR [CHEST PORTABLE] [RAD] Stat - Medication Orders Current Medication Orders: Discontinued Medications Albuterol/Ipratropium (Duoneb 3 Mg/0.5 Mg (3 Ml) Ud) 3 ml IH STAT STA Stop: 07/30/18 12:35 Last Admin: 07/30/18 13:11 Dose: 3 ml Methylprednisolone (Solu-Medrol) 125 mg IVP STAT STA Stop: 07/30/18 12:35 Last Admin: 07/30/18 13:11 Dose: 125 mg IVP Administration Document 07/30/18 13:11 CD (Rec: 07/30/18 13:11 CD [place] [id number]) Charges for Administration # of IVP Administrations 1 Pantoprazole Sodium (Protonix Inj) 40 mg IVP STAT STA Stop: 07/30/18 13:37 Last Admin: 07/30/18 14:03 Dose: 40 mg IVP Administration Document 07/30/18 14:03 CD (Rec: 07/30/18 14:04 CD [facility] Charges for Administration # of IVP Administrations 1 <Donald Rizzo - Last Filed: 07/30/18 15:29> Disposition/Present on Arrival - Present on Arrival Any Indicators Present on Arrival: Yes History of DVT/PE: Yes History of Uncontrolled Diabetes: No Urinary Catheter: No History of Decub. Ulcer: No History Surgical Site Infection Following: None - Disposition Have Diagnosis and Disposition been Completed?: Yes Disposition Time: 13:42 Patient Plan: Discharge <Corinne Ray - Last Filed: 07/30/18 13:42> <Donald Rizzo - Last Filed: 07/30/18 15:29> - Disposition Diagnosis: Pneumonia Disposition: HOME/ ROUTINE Condition: IMPROVED Additional Instructions: Keep appointment with foundry manager, Dr. Dumont, tomorrow 07/31/18. Continue follow-up with GI for acid reflux. Continue oral antibiotics as prescribed. You may take Tylenol or Motrin if needed for fever. Referrals: Paula Dumont MD [Staff Provider] - Follow up with primary Forms: [employer] ([employer]arwanda)
[2018-07-30] MEDS ORDERED: Albuterol-Ipratrop 3 mg / 0.5 (3 ml) UD IH STA (12:34)
--- NOTE | 2018-07-30 13:09 | RAD ---
Date of service: 07/30/2018 HISTORY: sob COMPARISON: No prior. TECHNIQUE: 1 view obtained. FINDINGS: LUNGS: There is a dense infiltrate in the right upper lobe consistent with pneumonia. PLEURA: No significant pleural effusion identified, no pneumothorax apparent. CARDIOVASCULAR: Aortic calcification Normal cardiac size. No pulmonary vascular congestion. OSSEOUS STRUCTURES: Sternal wires VISUALIZED UPPER ABDOMEN: Normal. OTHER FINDINGS: None. IMPRESSION: There is a dense infiltrate in the right upper lobe consistent with pneumonia.
[2018-07-30 13:15] LABS: BASO # 0.04 K/mm3 (0.0-2.0); BASO % 0.6 % (0.0-3.0); EOS # 0.1 (0.0-0.7); EOS % 1.4 % (1.5-5.0); HEMOGLOBIN 12.5 g/dL (12.0-16.0); LYMPH # 2.8 (1.2-3.4); LYMPH % 40.7 % (22.0-35.0); MEAN CELL VOLUME 88.5 fl (80.0-105.0); MEAN CORPUSCULAR HEMOGLOBIN 28.7 pg (25.0-35.0); MEAN CORPUSCULAR HGB CONC 32.5 g/dl (31.0-37.0); MEAN PLATELET VOLUME 8.7 fl (7.0-11.0); MONO # 0.5 (0.1-0.6); MONO % 7.1 % (1.0-6.0); RBC 4.35 10^6/uL (3.5-6.1); RED CELL DISTRIBUTION WIDTH 13.5 % (11.5-14.5); WHITE BLOOD COUNT 6.9 10^3/uL (4.5-11.0)
[2018-07-30 13:24] LABS: ALB/GLOB RATIO 1.2 (1.1-1.8); ALBUMIN 3.6 g/dL (3.0-4.8); ALT/SGPT 41 U/L (7-56); AST/SGOT 32 U/L (14-36); BLOOD UREA NITROGEN 11 mg/dL (7-21); CALCIUM 9.2 mg/dL (8.4-10.5); GFR NON-AFRICAN AMERICAN > 60
[2018-07-30 14:11] VITALS: BP 108/58; PULSE 80; RESP 17; O2SAT 99
--- NOTE | 2018-07-31 12:45 | CARD ---
APPROVED REPORT Date of service: 07/30/2018 EKG Measurement Heart [id number] <Conclusion> Normal sinus rhythm Possible Left atrial enlargement Nonspecific T wave abnormality Abnormal ECG
== END 2018-07-30 14:16 | disposition home or self-care (01) ==
LOC: ED 11:35
DX: J18.9 Pneumonia, unspecified organism (principal); I50.9 Heart failure, unspecified; Z86.711 Personal history of pulmonary embolism; Z95.1 Presence of aortocoronary bypass graft
CPT/HCPCS: 71045; 80053; 83735; 84100; 85025; 96374; 96375; 99284; C9113; J2930